=== PATIENT | male | born 1980 | race Two or more races ===

== ENCOUNTER 2020-04-17 16:40 | Emergency (ER) | payer MEDICAID ==
[~2020-04-17] VITALS: Ht 170.2 cm; Wt 72.6 kg
--- NOTE | 2020-04-17 16:50 | NUR ---
DR Cole at the bedside for MSE.
[2020-04-17] MEDS ORDERED: TDAP DIPH,PERTUSS,TET VAC/PF 0.5 ML DISP.SYRIN IM ONE ×2 (17:00→17:05)
[2020-04-17] MEDS ORDERED: LIDOCAINE HCL 1% 20 ML VIAL IJ ONE (17:15)
[2020-04-17 17:38] LABS: BASOPHILS # (AUTO) 0.1 K/uL (0.0-8.0); BASOPHILS % (AUTO) 0.9 % (0.0-2.0); EOSINOPHILS % (AUTO) 0.1 % (0.0-7.0); HEMATOCRIT 40.5 % (36.7-47.1); LYMPHOCYTES # (AUTO) 1.9 K/uL (20.0-40.0); LYMPHOCYTES % (AUTO) 21.4 % (20.5-51.5); MEAN CORPUSCULAR HEMOGLOBIN 33.3 uug (23.8-33.4); MEAN CORPUSCULAR HGB CONC 35 g/dL (32.5-36.3); MEAN CORPUSCULAR VOLUME 96.2 fL (73.0-96.2); MONOCYTES # (AUTO) 0.9 K/uL (2.0-10.0); MONOCYTES % (AUTO) 10.5 % (0.0-11.0); NEUTROPHILS # (AUTO) 5.9 K/uL (1.8-8.9); NEUTROPHILS % (AUTO) 67.1 % (38.5-71.5); PLATELET COUNT (AUTO) 239 K/uL (152-348); RED BLOOD CELL COUNT(AUTO) 4.21 MIL/uL (4.06-5.63); WHITE BLOOD COUNT (AUTO) 8.9 K/uL (3.6-10.2)
[2020-04-17 17:51] LABS: BILIRUBIN,DIRECT 0.1 mg/dL (0.0-0.2); BILIRUBIN,TOTAL 0.4 mg/dL (0.2-1.0); TOTAL PROTEIN, SERUM 6.9 g/dL (6.4-8.2)
--- NOTE | 2020-04-17 17:54 | NUR ---
Pt out of ER for Ct.
[2020-04-17 17:56] LABS: POTASSIUM 2.8 mmol/L (3.5-5.1)
[2020-04-17] MEDS ORDERED: LORAZEPAM 2 MG/1 ML VIAL IV ONE (18:00)
--- NOTE | 2020-04-17 18:05 | NUR ---
PT signed consent for CTA, placed in the chart.
[2020-04-17] MEDS ORDERED: POTASSIUM CHLORIDE 50 ML ONE ×2 (18:11→19:26)
[2020-04-17] MEDS ORDERED: IOHEXOL 350 100 ML INFUS..BTL ONE (18:12)
[2020-04-17] MEDS ORDERED: IV NORMAL SALINE 250 ML IV ONE (18:12)
[2020-04-17] MEDS ORDERED: SWABABLE VALVE TRANSFER SET EA MC ONE (18:12)
[2020-04-17] MEDS: POTASSIUM CHLORIDE 50 ML IV SCH ×2 (18:45→19:00)
[2020-04-17] MEDS ORDERED: POTASSIUM BICARBONATE/CIT AC 25 MEQ TABLET.EFF PO ONE (19:30)
[2020-04-17] MEDS ORDERED: POTASSIUM BICARBONATE/CIT AC 25 MEQ TABLET.EFF ONE (19:32)
--- NOTE | 2020-04-17 19:43 | NUR ---
Dr Martinez change order to PO Potassium.
--- NOTE | 2020-04-17 19:47 | NUR ---
Patient does not wish to proceed with medical care recommended by Dr. Martinez. Patient given information related to possible complications, up to and including , which could occur as a result of leaving the hospital at this time. Patient verbalizes understanding of risks involved due to leaving against medical advice. Patient has signed AMA form.
[2020-04-17 20:05] VITALS: BP 126/80
== END 2020-04-17 19:45 | disposition left against medical advice (07) ==
LOC: ER 16:40
DX: R55 Syncope and collapse (principal); R07.9 Chest pain, unspecified; S01.111A Laceration without foreign body of right eyelid and periocular area, initial encounter; W18.39XA Other fall on same level, initial encounter; Y93.E1 Activity, personal bathing and showering; Y92.031 Bathroom in apartment as the place of occurrence of the external cause; J98.11 Atelectasis; E87.6 Hypokalemia; K76.0 Fatty (change of) liver, not elsewhere classified; F41.9 Anxiety disorder, unspecified
CPT/HCPCS: 12011; 36415; 70450; 70486; 71045; 71275; 72125; 80048; 80076; 80307; 84484; 85025; 85379; 90471; 90715; 93005; 96374; 99285; J3480 ×2; J3490; Q9967; 70030-TC; A4663; G0480; J7040; J7050

== ENCOUNTER 2020-05-25 15:00 | Emergency (ER) | payer MEDICAID ==
[~2020-05-25] VITALS: Ht 165.1 cm; Wt 68.0 kg
--- NOTE | 2020-05-25 15:10 | NUR ---
Dr. Adkins at bedside for MSE
[2020-05-25] MEDS ORDERED: IBUPROFEN 600 MG TABLET PO ONE (15:30)
[2020-05-25] MEDS ORDERED: IBUPROFEN 600 MG TABLET ONE (15:38)
--- NOTE | 2020-05-25 16:05 | NUR ---
Patient discharged to home in stable condition. Written and verbal after care instructions given. Patient verbalizes understanding of instructions. Stressed follow up or return to ER for worsening s/s. Patient ambulated with steady gait. NAD noted
[2020-05-25 16:07] VITALS: BP 122/71
== END 2020-05-25 16:05 | disposition home or self-care (01) ==
LOC: ER 15:00
DX: M79.652 Pain in left thigh (principal); F41.9 Anxiety disorder, unspecified; S79.922A Unspecified injury of left thigh, initial encounter; W22.8XXA Striking against or struck by other objects, initial encounter; Y92.89 Other specified places as the place of occurrence of the external cause; Y99.0 Civilian activity done for income or pay; Z96.81 Presence of artificial skin
CPT/HCPCS: 73551; A4663